=== PATIENT | female | born 1965 | race Two or more races ===

== ENCOUNTER 2018-09-28 12:10 | Day surgery (SDC) | payer BC ==
[2018-09-28] MEDS ORDERED: FENTAnyl 50 MCG/ML VIAL (14:18)
[2018-09-28] MEDS ORDERED: LIDOCAINE 100 MG SYRINGE (14:18)
[2018-09-28] MEDS ORDERED: PROPOFOL 40 ML (14:18)
== END 2018-09-28 16:14 | disposition home or self-care (01) ==
LOC: GIL 12:10
DX: Z12.11 Encounter for screening for malignant neoplasm of colon (principal); K64.8 Other hemorrhoids
CPT/HCPCS: 43239; 88305; 88312